=== PATIENT | female | born 1955 | race Caucasian/White ===

== ENCOUNTER 2020-01-02 18:34 | Emergency (ER) | payer MEDICARE ==
[~2020-01-02] VITALS: Ht 154.9 cm; Wt 39.0 kg
[2020-01-02 19:13] LABS: BASOPHILS % (AUTO) 0.3 % (0-1); EOSINOPHILS % (AUTO) 0 % (0-6); HEMATOCRIT 32.3 % (35.0-45.0); HEMOGLOBIN 10.7 g/dl (12.0-16.0); LYMPHOCYTES # (AUTO) 1.9 X10'3 (1.1-4.8); LYMPHOCYTES % (AUTO) 20.6 % (21-51); MEAN CORPUSCULAR HEMOGLOBIN 28.4 PG (27.0-31.0); MEAN CORPUSCULAR HGB CONC 33.2 g/dL (33.0-36.5); MEAN CORPUSCULAR VOLUME 85.6 FL (78-98); MEAN PLATELET VOLUME 7.2 FL (7.4-10.4); MONOCYTES % (AUTO) 10.3 % (2-12); NEUTROPHILS # (AUTO) 6.4 X10'3 (1.8-7.7); NEUTROPHILS % (AUTO) 68.8 % (42-75); PLATELET COUNT 385 X10'3 (140-440); RED BLOOD COUNT 3.77 X10'6 (4.20-5.60); RED CELL DISTRIBUTION WIDTH 13.6 % (11.5-14.5); WHITE BLOOD COUNT 9.3 X10'3 (4.5-11.0)
--- NOTE | 2020-01-02 19:17 | NUR ---
rec'd call from son, Arik [phone] and a family friend Judith who is an RN - they state pt is "fuzzy" and has had a change in mentation. She was described to have "trouble finding words" and difficulty "texting" and was "repeating herself" all of which is not normal for her. She also was having some right leg weakness. These symptoms have been present on and off for the past month.
[2020-01-02 19:23] LABS: ALANINE AMINOTRANSFERASE 24 U/L (12-78); ALBUMIN 3.2 G/DL (3.4-5.0); ALBUMIN/GLOBULIN RATIO 0.9 (1.1-1.5); ALKALINE PHOSPHATASE 132 IU/L (46-116); ANION GAP 8 (8-16); ASPARTATE AMINO TRANSFERASE 42 U/L (10-37); BILIRUBIN,TOTAL 0.3 MG/DL (0.1-1.0); BLOOD UREA NITROGEN 10 MG/DL (7-18); BUN/CREATININE RATIO 13.2 (6.6-38.0); CHLORIDE 98 MMOL/L (99-107); CREATININE 0.76 MG/DL (0.40-0.90); GLUCOSE 103 MG/DL (70-104); POTASSIUM 4.2 MMOL/L (3.5-5.1); SODIUM 132 MMOL/L (135-145); TOTAL CARBON DIOXIDE 26.1 MMOL/L (24-32); TOTAL PROTEIN 6.8 G/DL (6.4-8.2); eGFR 76 ML/MIN
--- NOTE | 2020-01-02 19:34 | NUR ---
family\\friend - also report that pt has breast CA and is not doing traditional treatment but is trying alternative treatment. They said her breast was "open" and "draining green liquid" - they also stated that the tumor is attached to the chest wall and not able to do a mastectomy.
[2020-01-02] MEDS ORDERED: iohexol 350MG/ML 100ml bottle IV ONE (20:44)
[2020-01-02 22:28] VITALS: BP 103/63
== END 2020-01-02 22:32 | disposition home or self-care (01) ==
LOC: ER 18:35
DX: C50.911 Malignant neoplasm of unspecified site of right female breast (principal); G93.89 Other specified disorders of brain; R42 Dizziness and giddiness
CPT/HCPCS: 36415; 70470; 71045; 80053; 83605; 84145; 85025; 87040; 93005; 99285; Q9967